=== PATIENT | male | born 1995 | race Caucasian/White ===

== ENCOUNTER 2024-05-10 14:54 | Outpatient (CLI) | payer BC, SELFPAY ==
--- NOTE | ~2024-05-10 | XR_ITS ---
Exam: Abdomen 1V HISTORY: R31.9 - Hematuria, unspecified COMPARISON: None. TECHNIQUE: Supine images of the abdomen FINDINGS: Bowel gas pattern is non-obstructive. There is no free air or deep sulci. Three stones are identified projecting over the left kidney. Within the upper pole, measuring 3 mm. Within the lower pole, measuring 1 and 2 mm. Visualization of the right kidney is limited by fecal stasis. Lung bases are unremarkable. Bones and soft tissues are unremarkable. IMPRESSION: Nonspecific, nonobstructive bowel gas pattern. Stones projecting over the left kidney. Visualization of the right kidney is limited by fecal stasis. Reviewed, dictated and finalized at location A. 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
== END 2024-05-10 14:55 | disposition home or self-care (01) ==
LOC: MICIMG 14:56
PROVIDERS: PCP Family Medicine Adolescent Medicine; Visit Provider Nurse Practitioner Family
DX: N20.0 Calculus of kidney (principal); R31.9 Hematuria, unspecified; Z87.442 Personal history of urinary calculi
CPT/HCPCS: 74018

== ENCOUNTER 2025-02-11 10:16 | Emergency (ER) | payer OTHER, SELFPAY ==
--- NOTE | ~2025-02-11 | XR_ITS ---
Examination: XR foot RT min 3V Clinical History: pain to lateral aspect of right foot/no known trauma Comparison: None Technique: 4 views right foot Findings/impression: 1. No fracture or dislocation identified. Reviewed, dictated and finalized at location R. UM FURNACE OPERATOR
--- OUTSIDE RECORDS SUMMARY | 2025-02-11 10:19 | XMS_ITS | Clinical Summary ---
Author Organization 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 Name Role Phone Unavailable Primary Care Provider Unavailabl e Social History Tobacco Use Types Packs/Day Years Used Date Smoking Tobacco: Never Assessed Sex and Gender Information Value Date Recorded Sex Assigned at Not on file Legal Sex Male 4:35 PM CDT Gender Identity Not on file Sexual Orientation Not on file Plan of Treatment Health Maintenance Due Date Last Done Comments Annual Physical 1998 Hepatitis C 2013 DTaP, Tdap and Td Vaccines ( 1 - Tdap) 2014 Hepatitis B Vaccines (1 of 3 - 19+ 3-dose series) 2014 HPV Vaccines (1 - 3-dose SCD M series) 2022 COVID-19 Vaccine ( - 2024-2 6 season) 2024 Influenza Adult (#1) 2024 Hepatitis A Vaccines Aged Out No long er eligible based on patient's age to complete this topic Meningococcal B Vaccine Aged Out No l onger eligible based on patient's age to complete this topic Meningococcal Vaccine Aged Out No garcia miesha eligible based on patient's age to complete this topic Pneumococcal Vaccine: Pediat rics (0 to 5 Years) and At-Risk Patients (6 to 49 Years) Aged Out No longer eligible b ased on patient's age to complete this topic RSV Immunizations Under 20 Months Aged Out No longer eligible based on patient's age to complete this topic
[2025-02-11 10:24] VITALS: BP 135/74; PULSE 78; RESP 18; TEMP 37.3; O2SAT 100
--- NOTE | 2025-02-11 10:39 | ED_ITS ---
HPI - Extremity Injury (Lower) General Chief Complaint: Extremity Injury, Lower Stated Complaint: RT Foot Pain Time Seen by Provider: 02/11/25 10:17 Source: patient Mode of arrival: ambulatory Limitations: no limitations History of Present Illness HPI Narrative: 29-year-old male presents to [facility] with complaints of pain to lateral aspect of his right foot for the past 2 days. Patient denies injury to his f oot. Patient reports that he did wear new shoes for few hours on Wednesday prior to the pain starting. Patient has been elevating right foot, applying ice and heat as well as taking ibuprofen for the pain with little relief. Patient reports the pain is worse with ambulation. Patient denies prior fracture to right foot MD complaint: other (right foot pain ) Onset (ago): day(s) (2) Relieving factors: rest Exacerbating factors: weight bearing Other symptoms: none Treatments prior to arrival: cold therapy, heart therapy and NSAIDS Related Data Allergies Allergy/AdvReac Type Severity Reaction Status Date / Time No Known Allergies Allergy Verified 02/11/25 10:23 Review of Systems Constitutional: Constitutional: Denies chills, Denies fatigue, Denies fever(s) and Denies weakness ENT: Denies vertigo and Denies dizziness Respiratory: Respiratory: Denies cough, Denies dyspnea and Denies wheezing Gastrointestinal: Gastrointestinal: Denies diarrhea, Denies nausea and Denies vomiting Musculoskeletal: Musculoskeletal: Reports arthralgias, Denies joint swelling and Denies muscle cramps Comments: Pain to lateral aspect of right foot Integumentary/Breasts: Skin/Breast: Denies pruritus and Denies rash Neurologic: Denies dizziness, Denies syncope and Denies headache(s) [facility] Family History Family History Mother Diabetes mellitus Hypertension Thyroid disorder Father Diabetes mellitus Hypertension Sleep apnea Grandparent Diabetes mellitus Heart problem Social History Social History Smoking status: Former smoker Alcohol intake: current Drinks per week: 2 Substance use: never Substance use type: does not use Lack of Transportation: No Lack of Food: Never True Current Housing: I Have Housing Concerned About Future Housing: No Difficulty Paying Gas/Electric Bills: No Difficulty Paying for Meds: No Currently Unemployed: No Education: High School Diploma/GED Difficulty w/ Childcare or Family Care: No Living arrangements: with family Additional living arrangements comments: girlfriend Additional occupation/education comments: [employer] in [place], previously 4 years in the [employer] was stationed in [place] Gender identity (if verbalized by the patient): Male Sexual Orientation (if Verbalized by the Patient): Straight or Heterosexual Comments At time of signature, I agree with nursing past medical, surgical, social and family history. There is no relevant family history pertinent to the presenting complaint. Exam Const: General: healthy appearing and no acute distress Nutritional Appearance: well nourished Orientation/consciousness: patient oriented x3 Limitations: no limitations HENMT: Head: normal to inspection Eyes: Conjunctivae: conjunctivae normal Neck: Neck: normal visual inspection Resp: Effort & Inspection: normal respiratory effort and not labored Auscultation: clear to auscultation bilaterally, no crackles, no rales, no rhonchi and no wheezes Cardio: Rate: regular rate Rhythm: regular rhythm Heart sounds: no murmurs Skin: General skin exam: normal color Rashes: no rashes Wounds: no wounds Neuro: General: patient oriented x3 and moves all extremities Speech: normal speech Gait exam (Neuro): Normal gait present Extrem: General: normal to inspection Other: Mild pain noted to lateral aspect of right foot upon palpation. There is no erythema, bruising, wounds, warmth or swelling noted to foot. Pulses are within normal limits. Psych: Affect: normal affect Attitude: cooperative Course Course Level of Care: Express Care Visit Vital Signs Vital signs: Vital Signs Temperature 37.3 C 02/11/25 10:24 Pulse Rate 78 02/11/25 10:24 Respiratory Rate 18 02/11/25 10:24 Blood Pressure 135/74 02/11/25 10:24 Pulse Oximetry 100 02/11/25 10:24 Oxygen Delivery Room Air 02/11/25 10:24 Temperature 37.3 C 02/11/25 10:24 Pulse Rate 78 02/11/25 10:24 Respiratory Rate 18 02/11/25 10:24 Blood Pressure 135/74 02/11/25 10:24 Pulse Oximetry 100 02/11/25 10:24 Oxygen Delivery Room Air 02/11/25 10:24 MDM - Extremity Injury (Lower) MDM Narrative Medical decision making narrative: Discussed x-ray results with patient. Rice therapy discussed with patient. Educated patient follow-up with primary care provider or commercial retoucher if symptoms not improved. Educated patient to proceed to the emergency room if symptoms worsen Differential Diagnosis Differential diagnosis: Likely other (Sprain, strain, cellulitis, gout) Imaging Data Radiologist's impression: Ordering Physician: Shannon Chapa APRN Date of Service: 02/11/25 Procedure(s): XR foot RT min 3V Accession Number(s): [id number] cc: Shannon Chapa APRN; SHIRT FOLDING MACHINE OPERATOR PHYSICIAN~ Examination: XR foot RT min 3V Clinical History: pain to lateral aspect of right foot/no known trauma Comparison: None Technique: 4 views right foot Findings/impression: 1. No fracture or dislocation identified. Reviewed, dictated and finalized at location R. LAW EXAMINER Please be advised this is a medical document. It is intended for [id number] communication. It is written in medical language and may contain unfamiliar abbreviations or verbiage. Medical documents are intended to carry relevant information, facts as evident, and the clinical opinion of the practitioner at the time of the encounter. This report may have been done utilizing a voice recognition system. Attempts have been made to correct errors. However, there may be uncorrected grammatical, spelling, and recognition errors present. The file time of this note does not necessarily represent the time of service. Dictated By: Hi Jordan MD 02/11/25 1101 Signed By: <Electronically signed by Hi Jordan MD in OV> 02/11/25 1108 Critical Care Time Critical Care Time Critical Care Time: No Discharge Plan Discharge Clinical Impression: Acute pain of right foot Patient Disposition: Home Condition: Stable Instructions: Musculoskeletal Pain (ED) Additional Instructions: Elevate right foot and apply cool compresses to area of pain Wear Sharan wrap as needed Alternate Motrin and Tylenol as needed for pain Follow-up with primary care provider if symptoms not improved Patient Language: Korean Prescriptions: No Action triamcinolone acetonide 55 mcg aerosol,spray 2 spray intranasal DAILY Qty: 16.9 5RF Rx Instructions: administer into each nostril levocetirizine [Xyzal] 5 mg tablet 5 mg PO DAILY Qty: 30 5RF Follow-up/Referrals: PHYSICIAN,SHIRT FOLDING MACHINE OPERATOR [Primary Care Provider, Internal Medicine] Time of Disposition: 11:12
== END 2025-02-11 11:14 | disposition home or self-care (01) ==
PROVIDERS: Emergency Provider Nurse Practitioner Family
DX: M79.671 Pain in right foot (principal); Z87.891 Personal history of nicotine dependence
CPT/HCPCS: 73630; 99213; G0463